=== PATIENT | female | born 1950 | race African-American/Black ===

== ENCOUNTER 2017-04-20 12:09 | Emergency (ER) | payer MEDICARE ==
[2017-04-20] MEDS ORDERED: methylPREDNISolone Acetate 40 mg/ml Vial ONE (12:21)
[2017-04-20] MEDS ORDERED: Dexamethasone 4 mg/ml Vial ONE (12:21)
[2017-04-20] MEDS ORDERED: Ondansetron ODT 4 MG TAB ONE (12:38)
== END 2017-04-20 12:42 | disposition home or self-care (01) ==
LOC: NAV ERS 12:09
DX: M17.12 Unilateral primary osteoarthritis, left knee (principal); K21.9 Gastro-esophageal reflux disease without esophagitis; I10 Essential (primary) hypertension; M06.9 Rheumatoid arthritis, unspecified; J45.909 Unspecified asthma, uncomplicated; Z79.899 Other long term (current) drug therapy
CPT/HCPCS: 96372; J1030; J1100; Q0162

== ENCOUNTER 2017-07-18 02:03 | Emergency (ER) | payer MEDICARE ==
[2017-07-18] MEDS ORDERED: methylPREDNISolone Sod Succ/PF 125 MG/2 ML VIAL ONE (02:22)
[2017-07-18] MEDS ORDERED: Ibuprofen 800 MG TAB ONE (02:22)
== END 2017-07-18 02:52 | disposition home or self-care (01) ==
LOC: NAV ERS 02:03
DX: M06.9 Rheumatoid arthritis, unspecified (principal); I10 Essential (primary) hypertension; J45.909 Unspecified asthma, uncomplicated; K21.9 Gastro-esophageal reflux disease without esophagitis; Z79.899 Other long term (current) drug therapy
CPT/HCPCS: 96372; J2930

== ENCOUNTER 2017-08-04 21:32 | Emergency (ER) | payer MEDICARE | END 2017-08-04 22:18 | disposition home or self-care (01) | LOC: NAV ERS 21:32 | DX: G56.01 Carpal tunnel syndrome, right upper limb (principal); I10 Essential (primary) hypertension; E78.5 Hyperlipidemia, unspecified; K21.9 Gastro-esophageal reflux disease without esophagitis; J45.909 Unspecified asthma, uncomplicated; M06.9 Rheumatoid arthritis, unspecified; Z79.899 Other long term (current) drug therapy | CPT/HCPCS: 99283 ==

== ENCOUNTER 2017-08-05 00:14 | Emergency (ER) | payer MEDICARE | END 2017-08-05 01:20 | disposition home or self-care (01) | LOC: NAV ERS 00:14 | DX: G56.01 Carpal tunnel syndrome, right upper limb (principal); I10 Essential (primary) hypertension; E78.5 Hyperlipidemia, unspecified; K21.9 Gastro-esophageal reflux disease without esophagitis; M06.9 Rheumatoid arthritis, unspecified; J45.909 Unspecified asthma, uncomplicated | CPT/HCPCS: 96372; J2270 ==

== ENCOUNTER 2017-08-26 23:40 | Emergency (ER) | payer MEDICARE ==
[2017-08-27] MEDS ORDERED: Ketorolac Tromethamine 60 MG/2 ML VIAL ONE (00:04)
== END 2017-08-27 00:22 | disposition home or self-care (01) ==
LOC: NAV ERS 23:40
DX: G56.01 Carpal tunnel syndrome, right upper limb (principal); E78.5 Hyperlipidemia, unspecified; K21.9 Gastro-esophageal reflux disease without esophagitis; I10 Essential (primary) hypertension; M06.9 Rheumatoid arthritis, unspecified; J45.909 Unspecified asthma, uncomplicated; Z79.899 Other long term (current) drug therapy
CPT/HCPCS: 96372; J1885

== ENCOUNTER 2017-08-29 19:30 | Emergency (ER) | payer MEDICARE ==
[2017-08-29] MEDS ORDERED: methylPREDNISolone Acetate 40 mg/ml Vial ONE (20:15)
== END 2017-08-29 20:35 | disposition home or self-care (01) ==
LOC: NAV ERS 19:30
DX: M06.9 Rheumatoid arthritis, unspecified (principal); E78.5 Hyperlipidemia, unspecified; K21.9 Gastro-esophageal reflux disease without esophagitis; J45.909 Unspecified asthma, uncomplicated
CPT/HCPCS: 96372; J1030

== ENCOUNTER 2017-10-01 13:56 | Outpatient (CLI) | payer MEDICARE ==
--- NOTE | 2017-10-01 16:04 | RAD ---
CHEST PA AND LATERAL TWO VIEWS 10/01/17 HISTORY: 67-year-old female with cough. COMPARISON: 10/25/16. FINDINGS: Minimal cardiomegaly. Atherosclerosis of the aorta with mild ectasia. No confluent pneumonia, overt e annamarie or pleural effusion. IMPRESSION: Stable minimal cardiomegaly. No other significant acute process. POS: PITA
== END 2017-10-01 13:57 | disposition home or self-care (01) ==
LOC: NAV RAD 13:56
PROVIDERS: ATTEND Nurse Practitioner Family
DX: R05 Cough (principal)
CPT/HCPCS: 71020

== ENCOUNTER 2017-10-08 21:58 | Emergency (ER) | payer MEDICARE ==
[2017-10-08] MEDS ORDERED: Dexamethasone 4 mg/ml Vial ONE (22:45)
[2017-10-08] MEDS ORDERED: Ketorolac Tromethamine 30 MG/ML VIAL ONE (22:45)
[2017-10-08] MEDS ORDERED: clonazePAM 0.5 MG TAB ONE (22:45)
== END 2017-10-08 23:27 | disposition home or self-care (01) ==
LOC: NAV ERS 21:58
DX: G56.01 Carpal tunnel syndrome, right upper limb (principal); F41.9 Anxiety disorder, unspecified; I10 Essential (primary) hypertension; E78.5 Hyperlipidemia, unspecified; K21.9 Gastro-esophageal reflux disease without esophagitis; M06.9 Rheumatoid arthritis, unspecified; J45.909 Unspecified asthma, uncomplicated
CPT/HCPCS: 96372; J1100; J1885

== ENCOUNTER 2017-10-09 15:46 | Emergency (ER) | payer MEDICARE ==
[2017-10-09] MEDS ORDERED: methylPREDNISolone Sod Succ/PF 125 MG/2 ML VIAL ONE (16:18)
[2017-10-09] MEDS ORDERED: traMADol HCl 50 MG TAB ONE (16:19)
[2017-10-09] MEDS ORDERED: cloNIDine 0.2 MG TAB ONE (16:39)
== END 2017-10-09 17:16 | disposition home or self-care (01) ==
LOC: NAV ERS 15:46
DX: G56.01 Carpal tunnel syndrome, right upper limb (principal); M06.9 Rheumatoid arthritis, unspecified; E78.5 Hyperlipidemia, unspecified; K21.9 Gastro-esophageal reflux disease without esophagitis; I10 Essential (primary) hypertension; J45.909 Unspecified asthma, uncomplicated; Z79.899 Other long term (current) drug therapy
CPT/HCPCS: 96372; J2930

== ENCOUNTER 2017-11-08 20:06 | Emergency (ER) | payer MEDICARE ==
[2017-11-08] MEDS ORDERED: Gabapentin 300 MG CAP ONE (20:27)
[2017-11-08] MEDS ORDERED: Gabapentin 300 MG CAP PO SCH (20:30)
[2017-11-08] MEDS ORDERED: HYDROcodone/Acetaminophen 5/325 mg Tablet ONE (20:38)
== END 2017-11-08 21:20 | disposition home or self-care (01) ==
LOC: NAV ERS 20:06
DX: G56.03 Carpal tunnel syndrome, bilateral upper limbs (principal); K21.9 Gastro-esophageal reflux disease without esophagitis; E78.5 Hyperlipidemia, unspecified; E78.1 Pure hyperglyceridemia; I10 Essential (primary) hypertension; J45.909 Unspecified asthma, uncomplicated; M06.9 Rheumatoid arthritis, unspecified; Z79.891 Long term (current) use of opiate analgesic; Z79.899 Other long term (current) drug therapy
CPT/HCPCS: 99283